=== PATIENT | female | born 1935 | race Caucasian/White ===

== ENCOUNTER → 2016-07-03 | Outpatient (CLI) | payer BC ==
[2016-07-03 16:52] LABS: BASO % 0.6 %; BASO ABS # 0.03 K/uL (0-0.2); COMPLETE YES; EOS % 0.4 %; HEMATOCRIT 39.3 % (37-47); IG% 0.2 %; LYMPH % 37.6 %; LYMPH ABS # 1.78 K/uL (1.2-3.4); MEAN CELL VOLUME 97.5 fL (80-100); MEAN CORPUSCULAR HEMOGLOBIN 33.7 pg (25-34); MEAN CORPUSCULAR HGB CONC 34.6 g/dl (32-36); MEAN PLATELET VOLUME 10.6 fL (7.4-10.4); MONO % 9.7 %; NEUT % 51.5 %; PLATELET COUNT 246 K/uL (130-400); RED BLOOD COUNT 4.03 M/uL (4.2-5.4); WHITE BLOOD COUNT 4.73 K/uL (4.8-10.8)
[2016-07-03 17:03] LABS: ALT/SGPT 18 U/L (12-78); BLOOD UREA NITROGEN 23 mg/dl (7-18); BUN/CREATININE RATIO 19.4 (10-20); CALCIUM 9.1 mg/dl (8.5-10.1); CARBON DIOXIDE 29 mmol/L (21-32); CHLORIDE 100 mmol/L (98-107); CHOLESTEROL 162 mg/dl (0-200); GLUCOSE 72 mg/dl (70-99); POTASSIUM 3.7 mmol/L (3.5-5.1); SODIUM 138 mmol/L (136-145); TRIGLYCERIDES 187 mg/dl (0-150); VERY LOW DENSITY LIPOPROT CALC 37 mg/dl
[2016-07-03 17:13] LABS: ALB/GLOB RATIO 1.1 (0.9-2); ALKALINE PHOSPHATASE 79 U/L (45-117); AST/SGOT 19 U/L (15-37); CHOLESTEROL/HDL RATIO 1.6; HDL CHOLESTEROL 100 mg/dl; LDL CHOLESTEROL CALCULATED 25 mg/dl; THYROID STIMULATING HORMONE 0.735 uIu/ml (0.300-4.500)
--- NOTE | 2016-07-07 12:10 | CODING QUERY MEDICAL NECESSITY ---
SUPPORTING DIAGNOSIS NEEDED A supporting diagnosis is required for the test/procedure performed on this patient in order for us to be reimbursed by the patient's insurance. Please provide a supporting diagnosis for the following test/procedure listed below next to the test name along with your signature. *If there is no additional diagnosis for this patient that would support the following test/procedure please document that below next to the test/procedure. Test(s)/Procedure(s) that require a supporting diagnosis: DOS 07/03 * Vitamin D DIAGNOSIS: Provider Signature: Date: Thank you Debby Mcintosh Health Information Management Once completed, please kindly fax back to [phone] For questions please call [phone]
== END | disposition home or self-care (01) ==
LOC: C.LABBC 13:35
PROVIDERS: ATTEND Internal Medicine Geriatric Medicine
DX: I10 Essential (primary) hypertension (principal); E04.2 Nontoxic multinodular goiter; E78.5 Hyperlipidemia, unspecified; E87.6 Hypokalemia; F41.8 Other specified anxiety disorders; M85.80 Other specified disorders of bone density and structure, unspecified site; E55.9 Vitamin D deficiency, unspecified

== ENCOUNTER 2021-02-26 12:27 | Inpatient (IN) ==
--- NOTE | 2021-02-26 12:52 | Emergency Department Note ---
Impression & Plan Parotid mass, Anemia, Cervical mass, Cystitis ED Provider Note NAME: SCOOTER MONIQUE AGE: 85 SEX: F : 1935 ARRIVES VIA: Ambulance INFORMANT: Patient, ED PROVIDER(S): Murali Basilio MD Chief Complaint: Vaginal bleeding HPI: Patient does present due to concern for vaginal bleeding. The patient states that she had some bleeding earlier in the week and thought that this is related to a cystitis or bladder infection. The patient does reside at [facility] but had the passage of 2 large size clots from the vagina today. The patient does not take blood thinning medications and no prior history of hysterectomy, ovarian, cervical, or vaginal cancer. Patient denies any fevers or chills. Patient is not vaccinated for COVID-19. Patient denies any chest pain shortness of breath nausea vomiting or dizziness. Patient denies any recent falls or trauma. Patient states that she had told her daughter who was could call the urologist as they initially thought this is bleeding due to UTI. ROS: See HPI for pertinent positives and negatives. A total of 10 systems were reviewed and otherwise negative. Past medical history: See below Surgical history: See below Social history: See below Physical Exam: GENERAL: NAD, wearing a mask, non-toxic. EYE EXAM: Normal conjunctiva. PERRL, no anisocoria and EOM's grossly intact w/o pain. NECK: Supple, no nuchal rigidity, no adenopathy, non-tender. No signs of meningismus. LUNGS: Clear to auscultation. Normal chest wall mechanics. HEART: NSR, no MRG. ABDOMEN: Abdomen soft, non-tender, normo-active bowel sounds, no masses, no rebound or guarding. BACK: No CVA TTP. SKIN: No rashes and no bruising. UPPER EXTREMITIES: Upper extremities are grossly normal. LOWER EXTREMITIES: Grossly normal, no edema. NEURO EXAM: A&O x3, cranial nerves II-XII grossly intact, normal speech, moves all 4 extremities on command w/o issue. Differential diagnoses: Etiologies such as threatened AB, miscarriage, ectopic , dysfunction uterine bleeding, bleeding dyscrasia, trauma, infection, as well as others were entertained. Course: Patient was seen and evaluated the bedside. Full history physical exam was performed. Imaging Studies: See Below Cardiac monitoring: An order was placed for continuous cardiac monitoring. The monitor shows a rate of 95 with sinus rhythm. MDM: Patient's initial pelvic ultrasound showed concern for possible bladder clot and CT of the abdomen pelvis was obtained. The patient had mild white count 15 but may have had a mild UTI. Urinalysis does appear to be consistent with that and Rocephin was ordered. Hemoglobin is 10.7 which is a change but most recent hemoglobin viewable in our system is from 2018. Patient's platelet count is unremarkable. Patient does have mild kidney dysfunction compared to prior with a creatinine of 2.2. There is some hydro of the left side on the CAT scan but the patient does not have any hydro on the right side. Patient did receive IV fluids. I did speak to the on-call hospitalist Dr. Yoo. 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 I did speak the on-call [employer] physician Dr. Truong who stated that the patient would likely not be a surgical candidate but may benefit from chemo and/or radiation therapy. I did convey this to hospitalist. The patient was consented for blood blood was ordered. Critical Care: I have personally spent 47 minutes of critical care time in direct management of this patient. This includes bedside care, interpretation of diagnostic studies, and testing, discussion with consultants, patient, and family members, and other require inpatient management activities. This 47 minutes is in excess of all separately billable procedures. Past Med/Surg History Medical History Anxiety Depression Goiter, nontoxic, multinodular Hx of closed fracture left humerus Hyperlipidemia Hypertension Osteoarthritis Parotid mass Has been present for years and does not seem to be enlarging per PCP note. No imaging available. Pulmonary nodule Chronic, stable left lower lobe nodule. Follows with Dr. Marinao. Vitamin D deficiency Surgical History History of cataract surgery Bilateral History of tonsillectomy Family History Other Benign essential HTN Social History Smoking Status: Never smoker Hx Alcohol Use: Yes Alcohol type: wine Hx Substance Use: No Preferred Language: Uzbek Communication Ability: Effective Microsoft Net Developer Required: No Beliefs That Will Affect Care: None Current Living Situation: Alone Current Living Situation Comment: lives in assisted living currently Feels Safe at Home: Yes Assistive Devices: Walker Allergies Allergies Allergy/AdvReac Type Severity Reaction Status Date / Time aloe vera Allergy Intermediate Rash Verified 02/26/21 14:30 benzethonium chloride Allergy Intermediate Rash Verified 02/26/21 14:30 [From Lanacane with Aloe] benzocaine Allergy Intermediate Rash Verified 02/26/21 14:30 [From Lanacane with Aloe] meloxicam Allergy Unknown ON JUNIPER Verified 02/26/21 14:30 MED LIST Home Meds Home Medications Medication Instructions Recorded Confirmed buspirone 5 mg tablet 5 mg PO TID 03/04/18 02/26/21 cholecalciferol (vitamin D3) 50 2,000 unit PO QAM 03/04/18 02/26/21 mcg (2,000 unit) tablet (Vitamin D3) diltiazem HCl 240 mg 240 mg PO QAM 03/04/18 02/26/21 capsule,extended release 24 hr (Cardizem CD) escitalopram oxalate 20 mg tablet 20 mg PO QAM 03/11/18 02/26/21 acetaminophen 500 mg tablet 500 mg PO HS 12/06/20 02/26/21 (Tylenol Extra Strength) Results & Data (ED) Vital Signs Vital Signs - 24 hr 02/26/21 12:20 02/26/21 14:39 02/26/21 15:16 Temperature 36.5 C Temperature Source Oral Pulse Rate 96 H Pulse Rate [Left Finger] 86 73 Respiratory Rate 20 16 18 Respiratory Effort / Characteristics Non-Labored Non-Labored Non-Labored Respiratory Depth Blood Pressure 129/72 Blood Pressure [Left Arm] 127/69 148/67 H Blood Pressure Mean 91 Blood Pressure Mean [Left Arm] 88 94 Pulse Oximetry 97 98 98 Oxygen Delivery Method Room Air Sepsis Recent Fever Within 48 Hours No Sepsis New/Unexplained Change in Mental Status No Sepsis Action Taken by Nursing No Action Required 02/26/21 16:00 Temperature Temperature Source Pulse Rate Pulse Rate [Left Finger] 77 Respiratory Rate 20 Respiratory Effort / Characteristics Non-Labored Spontaneous Respiratory Depth Normal Blood Pressure Blood Pressure [Left Arm] 149/60 H Blood Pressure Mean Blood Pressure Mean [Left Arm] 89 Pulse Oximetry 98 Oxygen Delivery Method Room Air Sepsis Recent Fever Within 48 Hours Sepsis New/Unexplained Change in Mental Status Sepsis Action Taken by [facility] Medications Current Medication List: was personally reviewed by me Laboratory Data Attestation: I reviewed the patient's lab results. Result diagrams: 02/26/21 13:08 02/26/21 13:08 Lab Results 02/26/21 02/26/21 02/26/21 Range/Units 13:08 13:08 13:08 WBC 15.34 H (4.8-10.8) K/uL RBC 3.50 L (4.2-5.4) M/uL Hgb 7.7 L (12.0-16.0) g/dL Hct 25.9 L (37-47) % MCV 74.0 L (80-100) fL MCH 22.0 L (25-34) pg MCHC 29.7 L (32-36) g/dL RDW Std Deviation 50.2 H (36.4-46.3) fL RDW Coeff of Jasmina 18.7 H (11.5-14.5) % Plt Count 474 H (130-400) K/uL MPV 8.6 (7.4-10.4) fL Immature Gran % (Auto) 0.4 % Neut % (Auto) 80.6 % Lymph % (Auto) 10.6 % [place] % (Auto) 7.4 % Eos % (Auto) 0.6 % Baso % (Auto) 0.4 % Neut # (Auto) 12.37 H (1.4-6.5) K/uL Lymph # (Auto) 1.62 (1.2-3.4) K/uL [place] # (Auto) 1.14 H (0.11-0.59) K/uL Eos # (Auto) 0.09 (0-0.5) K/uL Baso # (Auto) 0.06 (0-0.2) K/uL Immature Gran # (Auto) 0.06 H (0.00-0.02) K/uL Polychromasia 1+ Microcytosis Present PT 10.4 (9.0-12.0) Seconds INR 1.0 (0.9-1.1) APTT 23.9 (21.0-31.0) Seconds PTT Ratio 0.9 Sodium (136-145) mmol/L Potassium (3.5-5.1) mmol/L Chloride (98-107) mmol/L Carbon Dioxide (21-32) mmol/L Anion Gap (3-11) BUN (7-18) mg/dl Creatinine (0.6-1.2) mg/dl Est Cr Clr Drug Dosing ml/min Est GFR ( Amer) ml/min Est GFR (Non-Af Amer) ml/min BUN/Creatinine Ratio (10-20) Glucose (70-99) mg/dl Calcium (8.5-10.1) mg/dl Total Bilirubin (0.2-1) mg/dl AST (15-37) U/L ALT (12-78) U/L Alkaline Phosphatase (45-117) U/L Total Protein (6.4-8.2) gm/dl Albumin (3.4-5.0) gm/dl Globulin (2.5-4.0) gm/dl Albumin/Globulin Ratio (0.9-2) HCG, Quant mIU/ml Urine Color Urine Appearance (Clear) Urine pH (4.5-7.5) Ur Specific [place] (1.000-1.030) Urine Protein (Negative) Urine Glucose (UA) (Negative) Urine Ketones (Negative) Urine Blood (Negative) Urine Nitrite (Negative) Urine Bilirubin (Negative) Urine Urobilinogen (Negative) Ur Leukocyte Esterase (Negative) Urine RBC (0-4) /hpf Urine WBC (0-5) /hpf Ur Epithelial Cells (0-5) /lpf Urine Bacteria (Negative) COVID-19 Eval Order SARS-CoV-2 (PCR) (Negative) Blood Type B Positive Antibody Screen NEGATIVE Crossmatch See Detail 02/26/21 02/26/21 02/26/21 Range/Units 13:08 13:08 14:23 WBC (4.8-10.8) K/uL RBC (4.2-5.4) M/uL Hgb (12.0-16.0) g/dL Hct (37-47) % MCV (80-100) fL MCH (25-34) pg MCHC (32-36) g/dL RDW Std Deviation (36.4-46.3) fL RDW Coeff of Jasmina (11.5-14.5) % Plt Count (130-400) K/uL MPV (7.4-10.4) fL Immature Gran % (Auto) % Neut % (Auto) % Lymph % (Auto) % [place] % (Auto) % Eos % (Auto) % Baso % (Auto) % Neut # (Auto) (1.4-6.5) K/uL Lymph # (Auto) (1.2-3.4) K/uL [place] # (Auto) (0.11-0.59) K/uL Eos # (Auto) (0-0.5) K/uL Baso # (Auto) (0-0.2) K/uL Immature Gran # (Auto) (0.00-0.02) K/uL Polychromasia Microcytosis PT (9.0-12.0) Seconds INR (0.9-1.1) APTT (21.0-31.0) Seconds PTT Ratio Sodium 140 (136-145) mmol/L Potassium 4.1 (3.5-5.1) mmol/L Chloride 111 H (98-107) mmol/L Carbon Dioxide 21 (21-32) mmol/L Anion Gap 8.0 (3-11) BUN 30 H (7-18) mg/dl Creatinine 2.29 H (0.6-1.2) mg/dl Est Cr Clr Drug Dosing 19.0 ml/min Est GFR ( Amer) 21.5 ml/min Est GFR (Non-Af Amer) 18.6 ml/min BUN/Creatinine Ratio 13.2 (10-20) Glucose 158 H (70-99) mg/dl Calcium 8.8 (8.5-10.1) mg/dl Total Bilirubin 0.3 (0.2-1) mg/dl AST 7 L (15-37) U/L ALT 8 L (12-78) U/L Alkaline Phosphatase 77 (45-117) U/L Total Protein 6.3 L (6.4-8.2) gm/dl Albumin 2.4 L (3.4-5.0) gm/dl Globulin 3.9 (2.5-4.0) gm/dl Albumin/Globulin Ratio 0.6 L (0.9-2) HCG, Quant 14 mIU/ml Urine Color Red Urine Appearance Turbid A (Clear) Urine pH 8.5 H (4.5-7.5) Ur Specific [place] 1.025 (1.000-1.030) Urine Protein 3+ H (Negative) Urine Glucose (UA) Trace H (Negative) Urine Ketones Negative (Negative) Urine Blood 3+ H (Negative) Urine Nitrite Positive A (Negative) Urine Bilirubin 1+ H (Negative) Urine Urobilinogen Negative (Negative) Ur Leukocyte Esterase Negative (Negative) Urine RBC >30 H (0-4) /hpf Urine WBC 10-30 H (0-5) /hpf Ur Epithelial Cells 0-5 (0-5) /lpf Urine Bacteria 2+ H (Negative) COVID-19 Eval Order SARS-CoV-2 (PCR) (Negative) Blood Type Antibody Screen Crossmatch 02/26/21 02/26/21 Range/Units 15:45 15:45 WBC (4.8-10.8) K/uL RBC (4.2-5.4) M/uL Hgb (12.0-16.0) g/dL Hct (37-47) % MCV (80-100) fL MCH (25-34) pg MCHC (32-36) g/dL RDW Std Deviation (36.4-46.3) fL RDW Coeff of Jasmina (11.5-14.5) % Plt Count (130-400) K/uL MPV (7.4-10.4) fL Immature Gran % (Auto) % Neut % (Auto) % Lymph % (Auto) % [place] % (Auto) % Eos % (Auto) % Baso % (Auto) % Neut # (Auto) (1.4-6.5) K/uL Lymph # (Auto) (1.2-3.4) K/uL [place] # (Auto) (0.11-0.59) K/uL Eos # (Auto) (0-0.5) K/uL Baso # (Auto) (0-0.2) K/uL Immature Gran # (Auto) (0.00-0.02) K/uL Polychromasia Microcytosis PT (9.0-12.0) Seconds INR (0.9-1.1) APTT (21.0-31.0) Seconds PTT Ratio Sodium (136-145) mmol/L Potassium (3.5-5.1) mmol/L Chloride (98-107) mmol/L Carbon Dioxide (21-32) mmol/L Anion Gap (3-11) BUN (7-18) mg/dl Creatinine (0.6-1.2) mg/dl Est Cr Clr Drug Dosing ml/min Est GFR ( Amer) ml/min Est GFR (Non-Af Amer) ml/min BUN/Creatinine Ratio (10-20) Glucose (70-99) mg/dl Calcium (8.5-10.1) mg/dl Total Bilirubin (0.2-1) mg/dl AST (15-37) U/L ALT (12-78) U/L Alkaline Phosphatase (45-117) U/L Total Protein (6.4-8.2) gm/dl Albumin (3.4-5.0) gm/dl Globulin (2.5-4.0) gm/dl Albumin/Globulin Ratio (0.9-2) HCG, Quant mIU/ml Urine Color Urine Appearance (Clear) Urine pH (4.5-7.5) Ur Specific [place] (1.000-1.030) Urine Protein (Negative) Urine Glucose (UA) (Negative) Urine Ketones (Negative) Urine Blood (Negative) Urine Nitrite (Negative) Urine Bilirubin (Negative) Urine Urobilinogen (Negative) Ur Leukocyte Esterase (Negative) Urine RBC (0-4) /hpf Urine WBC (0-5) /hpf Ur Epithelial Cells (0-5) /lpf Urine Bacteria (Negative) COVID-19 Eval Order Covid19 at [facility] SARS-CoV-2 (PCR) NEGATIVE (Negative) Blood Type Antibody Screen Crossmatch Administered Medications Discontinued Medications Sodium Chloride (Nss 1000ml) 1,000 mls @ 999 mls/hr IV .Q1H1M KRISTYN Stop: 02/26/21 14:00 Last Infusion: 02/26/21 14:30 Dose: 0 mls/hr Documented by: [id number] Admin: 02/26/21 13:27 Dose: 999 mls/hr Documented by: [id number] Sodium Chloride (Nss 1000ml) 500 mls @ 999 mls/hr IV .Q31M ONE Stop: 02/26/21 14:39 Last Infusion: 02/26/21 15:47 Dose: 0 mls/hr Documented by: [id number] Admin: 02/26/21 14:58 Dose: 999 mls/hr Documented by: [id number] Ceftriaxone Sodium (Rocephin) 2,000 mg in 70 mls @ 140 mls/hr IV NOW STA Stop: 02/26/21 15:57 Last Infusion: 02/26/21 16:11 Dose: 0 mls/hr Documented by: [id number] Admin: 02/26/21 15:38 Dose: 140 mls/hr Documented by: [id number] Morphine Sulfate (Morphine Sulfate 4 Mg/Ml 1 Ml Carp\Vial) 2 mg IV NOW STA Stop: 02/26/21 15:29 Last Admin: 02/26/21 15:38 Dose: Not Given Documented by: [id number] Morphine Sulfate (Morphine Sulfate 2 Mg/Ml Carp) Confirm Administered Dose 2 mg .ROUTE .STK-MED ONE Stop: 02/26/21 15:33 Last Admin: 02/26/21 15:38 Dose: 2 mg Documented by: [id number] Imaging Data Radiologist's Impression: Pelvis Ultrasound 02/26/21 12:48 PELVIC ULTRASOUND CLINICAL HISTORY: Vaginal bleeding. COMPARISON STUDY: None. TECHNIQUE: Transabdominal sonography of the pelvis was performed. Patient deferred transvaginal exam. FINDINGS: The uterus measures 9.2 x 2.7 x 2.5 cm. Endometrium is not well visualized on this transabdominal exam but measures approximately 4 mm in thickness. Ovaries were not visualized. There is complex material within the bladder. There is no right hydronephrosis. There is moderate to severe left hydr onephrosis. IMPRESSION: 1. Complex material within the bladder which could reflect clot. Coexistent bladder mass cannot be excluded. Moderate to severe left hydronephrosis. CT of the abdomen and pelvis is recommended for further evaluation. 2. Suboptimal evaluation of endometrial thickness on this exam although measures approximately 4 mm which is within normal limits in a postmenopausal patient. 3. Nonvisualization of the ovaries. ACT 112: Negative or not required by law. Electronically signed by: Yuri Bryant M.D. 02/26/2021 2:11 PM Abdomen/Pelvis CT 02/26/21 14:16 CT OF THE ABDOMEN AND PELVIS WITHOUT CONTRAST CLINICAL HISTORY: hydro, bladder clot COMPARISON STUDY: Pelvic ultrasound February 26, 2021 at 1:35 PM. TECHNIQUE: Axial images of the abdomen and pelvis were obtained without IV contrast. Images were reviewed in the axial, sagittal, and coronal planes. Automated exposure control was utilized for the study. A dose lowering technique was utilized adhering to the principles of ALARA. FINDINGS: Visualized portions of the lower chest demonstrate a moderate sized hiatal hernia. No pneumatosis, free air or portal venous gas is present. Evaluation of the abdomen and pelvis is suboptimal given the lack of contrast. A 1.1 cm segment 6 hepatic lesion favors a cyst. A 2.4 cm inferior right hepatic lobe lesion favors a cyst as well. There is no biliary or pancreatic ductal dilatation. The adrenal glands, pancreas and right kidney are normal. There is no biliary or pancreatic ductal dilatation. A 6 mm left renal lesion may reflect a hyperdense cyst. There is moderate left hydroureteronephrosis. The left ureter is dilated to the level of the left cervix with transition in caliber on image 298 of 396. There is heterogeneous enlargement of the cervix which contains hyperdense material which may reflect tumor or blood. In addition, there is loss of fat plane between the cervix and bladder with extensive material within the bladder. There is trace gas within the bladder. Infiltration adjacent to the bladder is pres ent. A few prominent asymmetrically enlarged left iliac chain lymph nodes are present. Index left iliac node on image 228 of 396 measures 1.1 x 0.8 cm. There is no evidence for a bowel obstruction. Colonic diverticulosis is noted without evidence for acute diverticulitis. No suspicious lesions are identified within visualized skeletal structures. IMPRESSION: 1. Mass-like enlargement of the cervix with loss of fat plane between the cervix and bladder with associated material within the bladder. 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 Hyperdense material within the bladder and cervix may reflect tumor and hemorrhage. Nonemergent Gynecologic consultation is recommended. 2. Infiltration adjacent to the bladder raises the possibility of a superimposed infectious process and could be correlated with urinalysis. 3. Prominent left iliac chain lymph nodes. Although these could be reactive, andrzej spread of disease could appear similar. 4. No bowel obstruction. ACT 112: Positive. There are findings on this exam that require communication between the performing entity and the patient following Patient Test Result Information Act ([place] Act 112) guidelines. Electronically signed by: Yuri Bryant M.D. 02/26/2021 3:10 PM Discharge Plan Visit Data Chief Complaint: Vaginal Bleeding Stated Complaint: vaginal bleeding ED Provider: Murali Basilio Discharge Problem: Parotid mass, Anemia, Cervical mass, Cystitis Patient Disposition: Admitted As Inpatient Discharge Instructions Interventions: ED Discharge Assessment Last Done: 02/26/21 18:38
[2021-02-26] MEDS ORDERED: SODIUM CHLORIDE 0.9% 1000ML 1,000 ML IV SCH (13:00)
[2021-02-26 13:20] LABS: Basophils # (auto) 0.06 K/uL (0-0.2); Basophils % (auto) 0.4 %; Eosinophils # (auto) 0.09 K/uL (0-0.5); Eosinophils % (auto) 0.6 %; Hematocrit (blood only) 25.9 % (37-47); Hemoglobin 7.7 g/dL (12.0-16.0); Immature Granulocytes # (auto) 0.06 K/uL (0.00-0.02); Immature Granulocytes % (auto) 0.4 %; Lymphocytes # (auto) 1.62 K/uL (1.2-3.4); Lymphocytes % (auto) 10.6 %; Mean Corpuscular Hgb Conc 29.7 g/dL (32-36); Mean Platelet Volume 8.6 fL (7.4-10.4); Monocytes # (auto) 1.14 K/uL (0.11-0.59); Monocytes % (auto) 7.4 %; Neutrophils # (auto) 12.37 K/uL (1.4-6.5); Neutrophils % (auto) 80.6 %; Platelet Count 474 K/uL (130-400); RDW Coefficient of Variation 18.7 % (11.5-14.5); RDW Standard Deviation 50.2 fL (36.4-46.3); White Blood Count 15.34 K/uL (4.8-10.8)
[2021-02-26 13:39] LABS: Albumin Level 2.4 gm/dl (3.4-5.0); BUN Creatinine Ratio 13.2 (10-20); Calcium 8.8 mg/dl (8.5-10.1); Est GFR (African American) 21.5 ml/min; Est GFR (Non-African American) 18.6 ml/min; Potassium 4.1 mmol/L (3.5-5.1)
[2021-02-26 13:40] LABS: Partial Thromboplastin Ratio 0.9; Partial Thromboplastin Time 23.9 Seconds (21.0-31.0); Prothrombin Time 10.4 Seconds (9.0-12.0)
[2021-02-26 13:42] LABS: Albumin Globulin Ratio 0.6 (0.9-2); Bilirubin,Total 0.3 mg/dl (0.2-1); Globulin 3.9 gm/dl (2.5-4.0); Total Protein 6.3 gm/dl (6.4-8.2)
[2021-02-26 13:58] LABS: Microcytosis Present; Polychromasia 1+
[2021-02-26] MEDS ORDERED: SODIUM CHLORIDE 0.9% 1000ML 500 ML IV ONE (14:09)
--- NOTE | 2021-02-26 14:12 | Ultrasound Report ---
PELVIC ULTRASOUND CLINICAL HISTORY: Vaginal bleeding. COMPARISON STUDY: None. TECHNIQUE: Transabdominal sonography of the pelvis was performed. Patient deferred transvaginal exam . FINDINGS: The uterus measures 9.2 x 2.7 x 2.5 cm. Endometrium is not well visualized on this transabd ominal exam but measures approximately 4 mm in thickness. Ovaries were not visualized. There is compl ex material within the bladder. There is no right hydronephrosis. There is moderate to severe left hy dronephrosis. IMPRESSION: 1. Complex material within the bladder which could reflect clot. Coexistent bladder mass cannot be ex cluded. Moderate to severe left hydronephrosis. CT of the abdomen and pelvis is recommended for furth er evaluation. 2. Suboptimal evaluation of endometrial thickness on this exam although measures approximately 4 mm w hich is within normal limits in a postmenopausal patient. 3. Nonvisualization of the ovaries. ACT 112: Negative or not required by law. Electronically signed by: Yuri Bryant M.D. 02/26/2021 2:11 PM
[2021-02-26 14:47] LABS: Appearance Urine Turbid (Clear); Bilirubin Urine 1+ (Negative); Blood Urine 3+ (Negative); Color Urine Red; Glucose Urine UA Trace (Negative); Ketones Urine Negative (Negative); Leukocyte Esterase Urine Negative (Negative); Nitrite Urine Positive (Negative); Protein Urine 3+ (Negative); Specific Gravity Urine 1.025 (1.000-1.030); Urobilinogen Urine Negative (Negative); pH Urine 8.5 (4.5-7.5)
[2021-02-26 14:53] LABS: Epithelial Cell Urine 0-5 /lpf (0-5); RBC Urine >30 /hpf (0-4)
[2021-02-26 14:55] LABS: Bacteria Urine 2+ (Negative)
--- NOTE | 2021-02-26 15:11 | CT Scan Report ---
CT OF THE ABDOMEN AND PELVIS WITHOUT CONTRAST CLINICAL HISTORY: hydro, bladder clot COMPARISON STUDY: Pelvic ultrasound February 26, 2021 at 1:35 PM. TECHNIQUE: Axial images of the abdomen and pelvis were obtained without IV contrast. Images were revi ewed in the axial, sagittal, and coronal planes. Automated exposure control was utilized for the loyda dy. A dose lowering technique was utilized adhering to the principles of ALARA. FINDINGS: Visualized portions of the lower chest demonstrate a moderate sized hiatal hernia. No pneum atosis, free air or portal venous gas is present. Evaluation of the abdomen and pelvis is suboptimal given the lack of contrast. A 1.1 cm segment 6 hepatic lesion favors a cyst. A 2.4 cm inferior right hepatic lobe lesion favors a cyst as well. There is no biliary or pancreatic ductal dilatation. The a drenal glands, pancreas and right kidney are normal. There is no biliary or pancreatic ductal dilatat ion. A 6 mm left renal lesion may reflect a hyperdense cyst. There is moderate left hydroureteronephrosis. The left ureter is dilated to the level of the left cer vix with transition in caliber on image 298 of 396. There is heterogeneous enlargement of the cervix which contains hyperdense material which may reflect tumor or blood. In addition, there is loss of fa t plane between the cervix and bladder with extensive material within the bladder. There is trace gas within the bladder. Infiltration adjacent to the bladder is present. A few prominent asymmetrically enlarged left iliac chain lymph nodes are present. Index left iliac node on image 228 of 396 measures 1.1 x 0.8 cm. There is no evidence for a bowel obstruction. Colonic diverticulosis is noted without evidence for acute diverticulitis. No suspicious lesions are identified within visualized skeletal st ructures. IMPRESSION: 1. Mass-like enlargement of the cervix with loss of fat plane between the cervix and bladder with ass ociated material within the bladder. 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 Hyperdense material within the bladder and cervix may reflect tumor and hemor rhage. Nonemergent Gynecologic consultation is recommended. 2. Infiltration adjacent to the bladder raises the possibility of a superimposed infectious process a nd could be correlated with urinalysis. 3. Prominent left iliac chain lymph nodes. Although these could be reactive, andrzej spread of disease could appear similar. 4. No bowel obstruction. ACT 112: Positive. There are findings on this exam that require communication between the performing entity and the patient following Patient Test Result Information Act ([place] Act 112) guidelines. Electronically signed by: Yuri Bryant M.D. 02/26/2021 3:10 PM
[2021-02-26] MEDS ORDERED: MoRPHine SULFATE 4 MG/ML 1 ML CARP\\VIAL IV STA (15:28)
[2021-02-26] MEDS ORDERED: cefTRIAXone SODIUM 2,000 MG/70 ML BAG IV STA (15:28)
[2021-02-26] MEDS ORDERED: MoRPHine SULFATE 2 MG/ML CARP ONE (15:32)
[2021-02-26] MEDS ORDERED: SODIUM CHLORIDE 0.9% 250 ML IV PRN ×2 (16:26→19:21)
[2021-02-26] MEDS ORDERED: ACETAMINOPHEN 325 MG TAB PO PRN (16:57)
--- NOTE | 2021-02-26 17:07 | History & Physical Report ---
Date of Service February 26, 2021 Assessment & Plan (1) Cervical mass: Plan: Mass-like enlargement of the cervix with loss of fat plane between the cervix and bladder with associated material within the bladder. 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 - Gyne consulted- appreciate assistance - Family at bedside and once diagnosis established would likely take a palliative and comfort approach (2) Bladder injury: Plan: Hyperdense material within the bladder and cervix may reflect tumor and hemorrhage. - Urology consulted- appreciate assistance - no urinary outflow tract obstruction at this time - suspect bladder invasion from cervical mass (3) Hematuria: Plan: As above- - No acute hemmorhage with stable vital signs and HGB - will trend CBC and transfuse to keep >8 - If urinary obstruction occurs likely will need 3 way with irrigation - defer to urology (4) Hydroureteronephrosis: Plan: Urology consulted - appreciate assistance - as above - high probability of oncological process (5) Anemia: Plan: Acute on chronic- likely with component of iron deficiency - Current bleeding and HGB <8 will transfuse to keep >8 - If hemodynamics change- support with PRBC - INR normal - Platlet count normal - CBC at midnight (6) UTI (urinary tract infection): Plan: Continue Rocephin- await culture - Recently treated with Diflucan as outpatient secondary to yeast in urine as well - Monitor inflammatory response and culture data (7) ELADIO (acute kidney injury): Plan: Pre-renal as she was decreasing oral intake secondary to pain with urination - PRBC for volume and anemia - support with IVF as needed (8) Chronic kidney disease, stage III (moderate): Plan: As above (9) Hypertension: Plan: Continue Cardizem as long as hemodynamics remain normal (10) REINA (generalized anxiety disorder): Plan: Continue buspirone (11) Parotid mass: Plan: Stable History of Present Illness Chief Complaint: bleeding Primary Care Provider: Archana Sun at [facility] 85 YOF with past medical history of: Fall, arthroplasty of, chronic anemia, HTN, HFpEF, OA, DJD of right knee with replacement, REINA, chronic parotid mass. Patient comes in today with her daughter for concerns of increase in bleeding and clot passage noted in her depends. The patient reports that she has had some blood in urine for a while but only just on the toilet paper or in the bowel. In october she had one episode of large blood with clot passage in her depends, that went away on its own. Over the past week there has been increase in clot and blood in her pads and changing her undergarments 5-6 x per day. This is associated with burning and pain that is mostly felt in the urethra. She does not notice any rectal pain or vaginal pain. She had 2 large clots in her depends this morning, was changed in the EMD x1, and upon my evaluation has another large clot with blood noted in her depends. The patient has chronic anemia but her HGB is down to 7.7 today. She had a CT scan of the abdomen and pelvis done, although without contrast secondary to her elevated INVENTORY CONTROL CLERK level. The CT scan of her abdomen and pelvis revealed- heterogeneous enlargement of the cervix which contains hyperdense material which may reflect tumor or blood as well as inflammatory process that is consistent with her elevated WBC and ur inalysis. Her abdominal ultrasound revealed Complex material within the bladder which could reflect clot. Coexistent bladder mass cannot be excluded. The patient will be admitted to converge on a diagnostic and treatment plan for the above findings which likely represent a malignant process. Will transfuse PRBC to keep HGB >8, she is hemodynamically stable, follow renal function, and pain control. Will continue Rocephin for her UTI. Patient COVID test on admission is: NEGATIVE Allergies Allergy/AdvReac Type Severity Reaction Status Date / Time aloe vera Allergy Intermediate Rash Verified 02/26/21 14:30 benzethonium chloride Allergy Intermediate Rash Verified 02/26/21 14:30 [From Lanacane with Aloe] benzocaine Allergy Intermediate Rash Verified 02/26/21 14:30 [From Lanacane with Aloe] meloxicam Allergy Unknown ON JUNIPER Verified 02/26/21 14:30 MED LIST Home Medications Medication Instructions Recorded Confirmed Type buspirone 5 mg tablet 5 mg PO TID 03/04/18 02/26/21 History cholecalciferol (vitamin D3) 50 2,000 unit PO QAM 03/04/18 02/26/21 History mcg (2,000 unit) tablet (Vitamin D3) diltiazem HCl 240 mg 240 mg PO QAM 03/04/18 02/26/21 History capsule,extended release 24 hr (Cardizem CD) escitalopram oxalate 20 mg tablet 20 mg PO QAM 03/11/18 02/26/21 History acetaminophen 500 mg tablet 500 mg PO HS 12/06/20 02/26/21 History (Tylenol Extra Strength) Past Med/Surg History Medical History Anxiety Depression Goiter, nontoxic, multinodular Hx of closed fracture left humerus Hyperlipidemia Hypertension Osteoarthritis Parotid mass Has been present for years and does not seem to be enlarging per PCP note. No imaging available. Pulmonary nodule Chronic, stable left lower lobe nodule. Follows with Dr. Mariano. Vitamin D deficiency Surgical History History of cataract surgery Bilateral History of tonsillectomy Family History Other Benign essential HTN Social History Smoking Status: Never smoker Hx Alcohol Use: Yes Alcohol type: wine Hx Substance Use: No Preferred Language: Australian Communication Ability: Effective Coverage Analyst Required: No Beliefs That Will Affect Care: None Current Living Situation: Alone and Other Current Living Situation Comment: [facility] Other Information That Helps Us Care for You: No Feels Safe at Home: Yes Safety Concerns: Feels Safe At This Time Assistive Devices: Glasses and Walker Review of Systems Review of Systems: REVIEW OF SYSTEMS: Constitutional: No fever, sweats or chills Eyes: No diplopia, no worsening or blurred vision ENT: (+) parotid mass, normal hearing, no trouble swallowing Respiratory: No cough, sputum, dyspnea at rest or on exertion Cardiovascular: No chest pain, tightness or palpitations Abdomen: No pain, nausea, vomiting, diarrhea or constipation : (+) burning and pain with urination, blood with clots, Musculoskeletal: Hip and knee joint pain, NO calf pain, swelling Neurologic: No weakness, numbness/tingling, or balance problems Psychiatric: (+) anxiety or depression Skin: No rash or itch Physical Exam Physical Exam: PHYSICAL EXAM: General: awake, alert, no apparent distress Head: Normocephalic, atraumatic ENT: PERRL, EOMI, no pharyngeal exudate, mucous membranes moist Neuro: AAO x 3, speech clear and appropriate, strength intact bilaterally 5/5, sensation intact and equal all extremities and dermatomes, no pronator drift Chest: equal rise and fall of the chest, no accessory muscle use, no heaves or thrills, Clear to auscultation, on room air, Cardiac: Regular rate and rhythm, telemetry reviewed-NSR, skin warm dry, cap refill <3 seconds, peripheral pulses +2 no JVD, no murmur, no edema GI: NABS x 4 quadrants, soft, nontender to palpation, no rebound, guarding or tenderness : clots with blood and urine pain to palpation in the bladder and groin Extremities: Normal inspection, no peripheral edema or erythema, calfs nontender to palpation Psych: Normal mood and affect- likely some mild baseline dementia Skin: no rash or erythema Results & Data Results & Data ([facility]) Vital Signs (Past 12 Hours) Vital Signs Temp Pulse Pulse Resp BP BP Pulse Ox 02/26/21 16:00 77 20 149/60 H 98 02/26/21 15:16 73 18 148/67 H 98 02/26/21 14:39 86 16 127/69 98 02/26/21 12:20 36.5 C 96 H 20 129/72 97 Laboratory Results Abnormal lab results 02/26/21 02/26/21 02/26/21 Range/Units 13:08 13:08 13:08 WBC 15.34 H (4.8-10.8) K/uL RBC 3.50 L (4.2-5.4) M/uL Hgb 7.7 L (12.0-16.0) g/dL Hct 25.9 L (37-47) % MCV 74.0 L (80-100) fL MCH 22.0 L (25-34) pg MCHC 29.7 L (32-36) g/dL RDW Std Deviation 50.2 H (36.4-46.3) fL RDW Coeff of Jasmina 18.7 H (11.5-14.5) % Plt Count 474 H (130-400) K/uL Neut # (Auto) 12.37 H (1.4-6.5) K/uL Robeson # (Auto) 1.14 H (0.11-0.59) K/uL Immature Gran # (Auto) 0.06 H (0.00-0.02) K/uL Chloride 111 H (98-107) mmol/L BUN 30 H (7-18) mg/dl Creatinine 2.29 H (0.6-1.2) mg/dl Glucose 158 H (70-99) mg/dl AST 7 L (15-37) U/L ALT 8 L (12-78) U/L Total Protein 6.3 L (6.4-8.2) gm/dl Albumin 2.4 L (3.4-5.0) gm/dl Albumin/Globulin Ratio 0.6 L (0.9-2) Urine Appearance (Clear) Urine pH (4.5-7.5) Urine Protein (Negative) Urine Glucose (UA) (Negative) Urine Blood (Negative) Urine Nitrite (Negative) Urine Bilirubin (Negative) Urine RBC (0-4) /hpf Urine WBC (0-5) /hpf Urine Bacteria (Negative) Crossmatch See Detail 02/26/21 Range/Units 14:23 WBC (4.8-10.8) K/uL RBC (4.2-5.4) M/uL Hgb (12.0-16.0) g/dL Hct (37-47) % MCV (80-100) fL MCH (25-34) pg MCHC (32-36) g/dL RDW Std Deviation (36.4-46.3) fL RDW Coeff of Jasimna (11.5-14.5) % Plt Count (130-400) K/uL Neut # (Auto) (1.4-6.5) K/uL Robeson # (Auto) (0.11-0.59) K/uL Immature Gran # (Auto) (0.00-0.02) K/uL Chloride (98-107) mmol/L BUN (7-18) mg/dl Creatinine (0.6-1.2) mg/dl Glucose (70-99) mg/dl AST (15-37) U/L ALT (12-78) U/L Total Protein (6.4-8.2) gm/dl Albumin (3.4-5.0) gm/dl Albumin/Globulin Ratio (0.9-2) Urine Appearance Turbid A (Clear) Urine pH 8.5 H (4.5-7.5) Urine Protein 3+ H (Negative) Urine Glucose (UA) Trace H (Negative) Urine Blood 3+ H (Negative) Urine Nitrite Positive A (Negative) Urine Bilirubin 1+ H (Negative) Urine RBC >30 H (0-4) /hpf Urine WBC 10-30 H (0-5) /hpf Urine Bacteria 2+ H (Negative) Crossmatch Diagnostic Findings Pelvis Ultrasound 02/26/21 12:48 PELVIC ULTRASOUND CLINICAL HISTORY: Vaginal bleeding. COMPARISON STUDY: None. TECHNIQUE: Transabdominal sonography of the pelvis was performed. Patient deferred transvaginal exam. FINDINGS: The uterus measures 9.2 x 2.7 x 2.5 cm. Endometrium is not well visualized on this transabdominal exam but measures approximately 4 mm in thickness. Ovaries were not visualized. There is complex material within the bladder. There is no right hydronephrosis. There is moderate to severe left hydronephrosis. IMPRESSION: 1. Complex material within the bladder which could reflect clot. Coexistent bladder mass cannot be excluded. Moderate to severe left hydronephrosis. CT of the abdomen and pelvis is recommended for further evaluation. 2. Suboptimal evaluation of endometrial thickness on this exam although measures approximately 4 mm which is within normal limits in a postmenopausal patient. 3. Nonvisualization of the ovaries. ACT 112: Negative or not required by law. Electronically signed by: Yuri Bryant M.D. 02/26/2021 2:11 PM Abdomen/Pelvis CT 02/26/21 14:16 CT OF THE ABDOMEN AND PELVIS WITHOUT CONTRAST CLINICAL HISTORY: hydro, bladder clot COMPARISON STUDY: Pelvic ultrasound February 26, 2021 at 1:35 PM. TECHNIQUE: Axial images of the abdomen and pelvis were obtained without IV contrast. Images were reviewed in the axial, sagittal, and coronal planes. Automated exposure control was utilized for the study. A dose lowering technique was utilized adhering to the principles of ALARA. FINDINGS: Visualized portions of the lower chest demonstrate a moderate sized hiatal hernia. No pneumatosis, free air or portal venous gas is present. Evaluation of the abdomen and pelvis is suboptimal given the lack of contrast. A 1.1 cm segment 6 hepatic lesion favors a cyst. A 2.4 cm inferior right hepatic lobe lesion favors a cyst as well. There is no biliary or pancreatic ductal dilatation. The adrenal glands, pancreas and right kidney are normal. There is no biliary or pancreatic ductal dilatation. A 6 mm left renal lesion may reflect a hyperdense cyst. There is moderate left hydroureteronephrosis. The left ureter is dilated to the level of the left cervix with transition in caliber on image 298 of 396. There is heterogeneous enlargement of the cervix which contains hyperdense material which may reflect tumor or blood. In addition, there is loss of fat plane between the cervix and bladder with extensive material within the bladder. There is trace gas within the bladder. Infiltration adjacent to the bladder is present. A few prominent asymmetrically enlarged left iliac chain lymph nodes are present. Index left iliac node on image 228 of 396 measures 1.1 x 0.8 cm. There is no evidence for a bowel obstruction. Colonic diverticulosis is noted without evidence for acute diverticulitis. No suspicious lesions are identified within visualized skeletal structures. IMPRESSION: 1. Mass-like enlargement of the cervix with loss of fat plane between the cervix and bladder with associated material within the bladder. 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 Hyperdense material within the bladder and cervix may reflect tumor and hemorrhage. Nonemergent Gynecologic consultation is recommended. 2. Infiltration adjacent to the bladder raises the possibility of a superimposed infectious process and could be correlated with urinalysis. 3. Prominent left iliac chain lymph nodes. Although these could be reactive, andrzej spread of disease could appear similar. 4. No bowel obstruction. ACT 112: Positive. There are findings on this exam that require communication between the performing entity and the patient following Patient Test Result Information Act ([place] Act 112) guidelines. Electronically signed by: Yuri Bryant M.D. 02/26/2021 3:10 PM Medications Administered Home Medications buspirone 5 mg tablet 5 mg PO TID 03/04/18 [History Confirmed 02/26/21] cholecalciferol (vitamin D3) 50 mcg (2,000 unit) tablet (Vitamin D3) 2,000 unit PO QAM 03/04/18 [History Confirmed 02/26/21] diltiazem HCl 240 mg capsule,extended release 24 hr (Cardizem CD) 240 mg PO QAM 03/04/18 [History Confirmed 02/26/21] escitalopram oxalate 20 mg tablet 20 mg PO QAM 03/11/18 [History Confirmed 02/26/21] acetaminophen 500 mg tablet (Tylenol Extra Strength) 500 mg PO HS 12/06/20 [History Confirmed 02/26/21] Active Medications Acetaminophen (Acetaminophen 325 Mg Tab) 650 mg PO Q6 PRN PRN Reason: pain or fever Stop: 03/28/21 16:56 Sodium Chloride (Nss) 250 mls @ 15 mls/hr IV .[id number] PRN PRN Reason: For Transfusion Stop: 02/27/21 02:26 Discontinued Medications Sodium Chloride (Nss 1000ml) 1,000 mls @ 999 mls/hr IV .Q1H1M KRISTYN Stop: 02/26/21 14:00 Last Infusion: 02/26/21 14:30 Dose: 0 mls/hr Documented by: [id number] Admin: 02/26/21 13:27 Dose: 999 mls/hr Documented by: [id number] Sodium Chloride (Nss 1000ml) 500 mls @ 999 mls/hr IV .Q31M ONE Stop: 02/26/21 14:39 Last Infusion: 02/26/21 15:47 Dose: 0 mls/hr Documented by: [id number] Admin: 02/26/21 14:58 Dose: 999 mls/hr Documented by: [id number] Ceftriaxone Sodium (Rocephin) 2,000 mg in 70 mls @ 140 mls/hr IV NOW STA Stop: 02/26/21 15:57 Last Infusion: 02/26/21 16:11 Dose: 0 mls/hr Documented by: [id number] Admin: 02/26/21 15:38 Dose: 140 mls/hr Documented by: [id number] Morphine Sulfate (Morphine Sulfate 4 Mg/Ml 1 Ml Carp\Vial) 2 mg IV NOW STA Stop: 02/26/21 15:29 Last Admin: 02/26/21 15:38 Dose: Not Given Documented by: [id number] Morphine Sulfate (Morphine Sulfate 2 Mg/Ml Carp) Confirm Administered Dose 2 mg .ROUTE .STK-MED ONE Stop: 02/26/21 15:33 Last Admin: 02/26/21 15:38 Dose: 2 mg Documented by: [id number] ECG Additional Comments: Not indicated- no complaints HR normal on monitor Code Status & VTE Plan Code Status CODE: FULL VTE: SCDs VTE Prophylaxis Plan VTE Prophylaxis will be ordered: Yes Supervising Physician Co-Signing Physician Notes 85 yo female is seen and examined at bedside. During face to face encounter with patient, obtained a history and physical examination. Discussed case with JOSÉ MIGUEL Cook and answered all of the patient's questions. I reviewed above note and agree with it. Patient will be admitted with vaginal bleeding.Will consult machine plug shaper and urology. will transfuse one PRBC PG Care Time/CCT Total # of Minutes Spent Total Time Spent with Patient: Total time spent is greater than 50% in coordination of care (as documented) at patient's floor/unit and/or counseling patient: Coding Level of Care Code 82498 Initial Inpt Care Lvl 3 Diagnoses Anemia D64.9 Cervical mass N88.8 Bladder injury S37.20XA Chronic kidney disease, stage III (moderate) N18.3 Hypertension I10 REINA (generalized anxiety disorder) F41.1 Parotid mass K11.9 Hydroureteronephrosis N13.30 ELADIO (acute kidney injury) N17.9 UTI (urinary tract infection) N39.0 Hematuria R31.9
[2021-02-26] MEDS ORDERED: ONDANSETRON INJ 2 MG/ML 2 ML VIAL IV PRN (19:21)
[2021-02-26] MEDS ORDERED: MoRPHine SULFATE 2 MG/ML CARP IV PRN (19:21)
[2021-02-26] MEDS ORDERED: oxyCODONE HCL IR 5 MG TAB (IMMEDIATE RELEASE) PO PRN (19:21)
[2021-02-26] MEDS: LACTATED RINGER'S 1,000 ML IV SCH (21:27)
[2021-02-26] MEDS: busPIRone 5 MG TAB PO SCH (21:27)
[2021-02-27 00:53] LABS: Hematocrit (blood only) 24.9 % (37-47); Hemoglobin 7.6 g/dL (12.0-16.0); Mean Corpuscular Hemoglobin 24.5 pg (25-34); Mean Corpuscular Hgb Conc 30.5 g/dL (32-36); Mean Corpuscular Volume 80.3 fL (80-100); Mean Platelet Volume 9.6 fL (7.4-10.4); Platelet Count 292 K/uL (130-400); RDW Coefficient of Variation 22.4 % (11.5-14.5); RDW Standard Deviation 65.6 fL (36.4-46.3); White Blood Count 16.59 K/uL (4.8-10.8)
[2021-02-27 01:00] LABS: Anisocytosis Present; Basophils # (auto) 0.04 K/uL (0-0.2); Basophils % (auto) 0.2 %; Eosinophils # (auto) 0.02 K/uL (0-0.5); Eosinophils % (auto) 0.1 %; Immature Granulocytes % (auto) 0.6 %; Lymphocytes # (auto) 2.13 K/uL (1.2-3.4); Lymphocytes % (auto) 12.8 %; Microcytosis Present; Monocytes % (auto) 10.8 %; Neutrophils % (auto) 75.5 %; Ovalocytes 1+; Polychromasia 1+
[2021-02-27] MEDS ORDERED: SODIUM CHLORIDE 0.9% 250 ML IV PRN ×3 (01:36→11:39)
[2021-02-27 05:55] LABS: Basophils # (auto) 0.02 K/uL (0-0.2); Basophils % (auto) 0.1 %; Eosinophils # (auto) 0.04 K/uL (0-0.5); Eosinophils % (auto) 0.3 %; Hematocrit (blood only) 25.1 % (37-47); Hemoglobin 7.7 g/dL (12.0-16.0); Immature Granulocytes # (auto) 0.04 K/uL (0.00-0.02); Immature Granulocytes % (auto) 0.3 %; Lymphocytes % (auto) 18.3 %; Mean Corpuscular Hemoglobin 24.1 pg (25-34); Mean Corpuscular Hgb Conc 30.7 g/dL (32-36); Mean Corpuscular Volume 78.7 fL (80-100); Mean Platelet Volume 8.6 fL (7.4-10.4); Monocytes # (auto) 1.61 K/uL (0.11-0.59); Monocytes % (auto) 11.3 %; Neutrophils # (auto) 9.91 K/uL (1.4-6.5); Neutrophils % (auto) 69.7 %; Platelet Count 349 K/uL (130-400); RDW Coefficient of Variation 20.4 % (11.5-14.5); RDW Standard Deviation 59.7 fL (36.4-46.3); Red Blood Count 3.19 M/uL (4.2-5.4); White Blood Count 14.22 K/uL (4.8-10.8)
[2021-02-27] MEDS: dilTIAZem HCL 240 MG CAPCR PO SCH (06:21)
[2021-02-27 06:26] LABS: Anisocytosis Present; BUN Creatinine Ratio 12.4 (10-20); Calcium 8.1 mg/dl (8.5-10.1); Creatinine Clr Calc Pharmacy 18.6 ml/min; Est GFR (African American) 21.5 ml/min; Est GFR (Non-African American) 18.6 ml/min; Magnesium 1.9 mg/dl (1.8-2.4); Microcytosis Present; Ovalocytes 1+; Potassium 4.1 mmol/L (3.5-5.1)
[2021-02-27 06:31] LABS: Ferritin 8.4 ng/ml (8-388)
[2021-02-27] MEDS: CHOLECALCIFEROL 1,000 UNITS 25 MCG TAB PO SCH (08:37)
[2021-02-27] MEDS: busPIRone 5 MG TAB PO SCH ×3 (08:37→20:09)
[2021-02-27] MEDS: ESCITALOPRAM OXALATE 20 MG TAB PO SCH (08:37)
--- NOTE | 2021-02-27 08:48 | OB/GYN Consultation ---
Date of Consultation February 27, 2021 Assessment & Plan (1) Cervical mass: Imaging is reviewed there is a large mass on her cervix suspected cervical cancer it is obstructing to some degree the left ureter and also pressing anteriorly into the bladder there is some debris in the bladder and whether this is blood or tumor it is uncertain. Exam was performed today with nursing at the bedside using a speculum lighted was able to barely visualize the cervix but it was abnormal and there is a mass largely on the left side of the vaginal aspect of the cervix. Palpation reveals a firm tumor of the cervix projecting again to the left side of the patient. It is nontender there is some bleeding however it is modest at most there is no fell odor. This certainly has the clinical picture of advanced cervical carcinoma. I reviewed my concerns with the patient today. At this stage in this advancement surgery would not be an option however in some cases chemotherapy and radiation can be an option to reduce the size of the tumor and improve function as well as to stop the bleeding. I did discuss that a tissue biopsy would be needed however I'm concerned to do that at this moment as she is actively bleeding and this likely will exacerbate bleeding significantly. Reviewing her imaging her left ureter appears to be at least partially obstructed if not totally there is left hydroureteronephrosis. And there is also issues with potential invasion into the bladder. Would consider reviewing with the medical team and urology a potential plan of care going forward again certainly surgery to excise the tumor the segment would not be recommended but she may well need urological intervention for the findings of her left ureter and kidney and bladder but I will await their consult. Discussed briefly with Dr. Mckeon the possibility of blood transfusion as well if a urologic procedure is necessary for the bladder and ureter injuries could consider biopsy of the cervix at the same time (2) Hydroureter: I reviewed this with the patient as well I suspect this is due to local invasion from the cervical tumor suspected cancer. Her creatinine is elevated and imaging is reviewed as well History of Present Illness Reason for Consultation: Pelvic mass Attending Physician: Adrianne Mckeon MD History of Present Illness Patient had noticed the onset of what she thought was hematuria but it was uncertain and she was also having bleeding when she was in pain this resulted in increased heaviness and clots which started over the last few days. She then presented to the emergency room. She describes no significant pain no significant flank pain she has no foul odor just this vaginal bleeding that has worsened over the last few weeks. She had imaging including CT scan and ultrasound in the emergency room she has no history of a recent ELECTROENCEPHALOGRAPH TECHNICIAN visit she does not remember having abnormal Paps. She is not remember having any ELECTROENCEPHALOGRAPH TECHNICIAN problems in the past Obstetrical history 2 prior vaginal births Allergies Allergy/AdvReac Type Severity Reaction Status Date / Time aloe vera Allergy Intermediate Rash Verified 02/26/21 14:30 benzethonium chloride Allergy Intermediate Rash Verified 02/26/21 14:30 [From Lanacane with Aloe] benzocaine Allergy Intermediate Rash Verified 02/26/21 14:30 [From Lanacane with Aloe] meloxicam Allergy Unknown ON JUNIPER Verified 02/26/21 14:30 MED LIST Home Medications Medication Instructions Recorded Confirmed Type buspirone 5 mg tablet 5 mg PO TID 03/04/18 02/26/21 History cholecalciferol (vitamin D3) 50 2,000 unit PO QAM 03/04/18 02/26/21 History mcg (2,000 unit) tablet (Vitamin D3) diltiazem HCl 240 mg 240 mg PO QAM 03/04/18 02/26/21 History capsule,extended release 24 hr (Cardizem CD) escitalopram oxalate 20 mg tablet 20 mg PO QAM 03/11/18 02/26/21 History acetaminophen 500 mg tablet 500 mg PO HS 12/06/20 02/26/21 History (Tylenol Extra Strength) Patient History Medical History Anxiety Depression Goiter, nontoxic, multinodular Hx of closed fracture left humerus Hyperlipidemia Hypertension Osteoarthritis Parotid mass Has been present for years and does not seem to be enlarging per PCP note. No imaging available. Pulmonary nodule Chronic, stable left lower lobe nodule. Follows with Dr. Mariano. Vitamin D deficiency Surgical History History of cataract surgery Bilateral History of tonsillectomy Family History Other Benign essential HTN Social History Smoking Status: Never smoker Hx Alcohol Use: Yes Alcohol type: wine Hx Substance Use: No Preferred Language: Luxembourgish Communication Ability: Effective House Designer Required: No Beliefs That Will Affect Care: None Current Living Situation: Alone and Other Current Living Situation Comment: [facility] Other Information That Helps Us Care for You: No Feels Safe at Home: Yes Safety Concerns: Feels Safe At This Time Assistive Devices: Walker Physical Exam Genitourinary: Speculum/Bimanual Exam: normal bimanual exam (Mass is fixed in the pelvis), normal appearance of the vagina and normal appearance of the cervix (Large mass protruding to the left side of the vaginal wall firm) Results & Data ([facility]) Vital Signs (Past 12 Hours) Vital Signs Temp Pulse Pulse Resp BP BP Pulse Ox 02/27/21 06:50 98.2 F 75 18 158/69 H 96 02/27/21 06:49 98.2 F 75 18 158/69 H 96 02/27/21 05:43 98.6 F 76 18 163/77 H 97 02/27/21 04:43 98.2 F 83 18 161/73 H 96 02/27/21 04:15 98.6 F 79 16 133/56 L 95 02/27/21 04:00 99.0 F 81 18 138/68 95 02/27/21 03:37 98.2 F 81 16 132/63 95 02/26/21 21:35 98.2 F 80 16 146/74 H 98 02/26/21 21:02 98.2 F 80 16 146/74 H 98 PG Care Time/CCT Total # of Minutes Spent Total Time Spent with Patient: Total time spent is greater than 50% in coordination of care (as documented) at patient's floor/unit and/or counseling patient: Coding Level of Care Code 05087 Initial Inpt Care Lvl 3 Diagnoses Cervical mass N88.8 Hydroureter N13.4
--- NOTE | 2021-02-27 09:59 | Urology Consultation ---
Date of Consultation February 27, 2021 Assessment & Plan (1) Hydroureter: (2) Hematuria: (3) Cervical mass: Unfortunate 85-year-old female who appears to have aggressive/advanced cervical carcinoma eroding or at least indenting the bladder and obstructing the left distal ureter Unfortunately she also has acute renal failure with a creatinine of 2.29, anemia with a hemoglobin of 7.7 On exam, she appears quite well and in no extreme distress I had a lengthy conversation with her today discussing her suspected pathology, this reiterated much of what was discussed with Dr. Truong From a standpoint, I am uncertain there is truly any benefit to us performing a cystoscopy Based on the appearance of the scans I think it is unlikely that I would succeed with placement of a left ureteral stent To improve her renal function the best bet may be left percutaneous nephrostomy I also think it would likely be best to biopsy this mass from the cervical/vaginal side Attempting to resect any mass from the bladder side would increase the risk of fistula substantially as well as likely lead to persistent bleeding Based on the UA, it does appear that she may have a superimposed infection and treatment with antibiotics would be appropriate to try to mitigate and limit symptoms (received ceftriaxone on arrival - this is appropriate) We will certainly continue to follow and offer our input as part of this team to develop a long-term plan for her History of Present Illness Attending Physician: Adrianne Mckeon MD History of Present Illness 85-year-old female presenting secondary to hematuria and vaginal bleeding She was seen in the emergency room in December with a presumed UTI secondary to hematuria and dysuriashe reports that she improved after a course of antibiotics Upon arrival today she had a CT which shows likely advanced cervical carcinoma eroding from the vaginal area through the posterior wall of the bladder and obstructing the left ureter Based on the appearance of the CT I strongly suspect this was the cause of her underlying symptoms previously Her creatinine is currently 2.29, approximately twice her baseline UA does appear consistent with infection which may be superimposed over the underlying malignant pathology She has experienced hematuria but reports she is emptying her bladder adequately She was seen by Dr. Truong this morninghe also suspects this is advanced cervical carcinoma and would ultimately like to pursue a biopsy, however her hemoglobin is 7.7 so she will need to be optimized prior to inducing any further bleeding Allergies Allergy/AdvReac Type Severity Reaction Status Date / Time aloe vera Allergy Intermediate Rash Verified 02/26/21 14:30 benzethonium chloride Allergy Intermediate Rash Verified 02/26/21 14:30 [From Lanacane with Aloe] benzocaine Allergy Intermediate Rash Verified 02/26/21 14:30 [From Lanacane with Aloe] meloxicam Allergy Unknown ON JUNIPER Verified 02/26/21 14:30 MED LIST Home Medications Medication Instructions Recorded Confirmed Type buspirone 5 mg tablet 5 mg PO TID 03/04/18 02/26/21 History cholecalciferol (vitamin D3) 50 2,000 unit PO QAM 03/04/18 02/26/21 History mcg (2,000 unit) tablet (Vitamin D3) diltiazem HCl 240 mg 240 mg PO QAM 03/04/18 02/26/21 History capsule,extended release 24 hr (Cardizem CD) escitalopram oxalate 20 mg tablet 20 mg PO QAM 03/11/18 02/26/21 History acetaminophen 500 mg tablet 500 mg PO HS 12/06/20 02/26/21 History (Tylenol Extra Strength) Patient History Medical History Anxiety Depression Goiter, nontoxic, multinodular Hx of closed fracture left humerus Hyperlipidemia Hypertension Osteoarthritis Parotid mass Has been present for years and does not seem to be enlarging per PCP note. No imaging available. Pulmonary nodule Chronic, stable left lower lobe nodule. Follows with Dr. Mariano. Vitamin D deficiency Surgical History History of cataract surgery Bilateral History of tonsillectomy Family History Other Benign essential HTN Social History Smoking Status: Never smoker Hx Alcohol Use: Yes Alcohol type: wine Hx Substance Use: No Preferred Language: Mohawk Communication Ability: Effective Combination Presser Required: No Beliefs That Will Affect Care: None Current Living Situation: Alone and Other Current Living Situation Comment: [facility] Other Information That Helps Us Care for You: No Feels Safe at Home: Yes Safety Concerns: Feels Safe At This Time Assistive Devices: Glasses and Walker Review of Systems Constitutional: no fever, no chills and no fatigue Eyes: no worsening vision Ear, Nose, Mouth, Throat: no facial pain and no pain with swallowing Respiratory: no cough and no dyspnea Cardiovascular: no chest pain and no palpitations Gastrointestinal: no abdominal pain, no nausea and no vomiting Genitourinary: + dysuria, + urinary frequency, + hematuria and + abnormal vaginal bleeding; no difficulty urinating Musculoskeletal: no back pain Integumentary: no rash and no urticaria Neurologic: no gait abnormality and no unsteadiness Psychiatric: no behavioral changes and no depression Endocrine: no fatigue Physical Exam Constitutional: well developed and well nourished Neck: neck nontender Respiratory: normal respiratory effort; no respiratory distress and does not use accessory muscles Cardiovascular: Rate/Rhythm: regular rate Vessels: radial pulses present Extremities: no edema Gastrointestinal (Abdomen): Inspection/Auscultation: abdomen normal to inspection Percussion/Palpation: abdomen soft; abdomen nontender and no guarding Musculoskeletal: Head/Neck/Chest: normocephalic and head atraumatic Extremities: extremities normal to inspection Skin: no rashes and no lesions Trauma: no evidence of skin trauma Neurologic: awake; not obtunded Speech / Cognition: normal speech Motor/Sensory: no tremor Psychiatric: Orientation: alert and oriented x 3 Lymphatic: no lymphadenopathy Results & Data ([facility]) Vital Signs (Past 12 Hours) Vital Signs Temp Pulse Pulse Resp BP BP Pulse Ox 02/27/21 07:35 37.1 C 75 16 158/69 H 98 02/27/21 06:50 36.8 C 75 18 158/69 H 96 02/27/21 06:49 36.8 C 75 18 158/69 H 96 02/27/21 05:43 37.0 C 76 18 163/77 H 97 02/27/21 04:43 36.8 C 83 18 161/73 H 96 02/27/21 04:15 37.0 C 79 16 133/56 L 95 02/27/21 04:00 37.2 C 81 18 138/68 95 02/27/21 03:37 36.8 C 81 16 132/63 95 PG Care Time/CCT Total # of Minutes Spent Total Time Spent with Patient: Total time spent is greater than 50% in coordination of care (as documented) at patient's floor/unit and/or counseling patient: Coding Level of Care Code 95126 Inpt Consult Level 5 Diagnoses Hydroureter N13.4 Hematuria R31.9 Cervical mass N88.8
[2021-02-27] MEDS ORDERED: IRON SUCROSE 200 MG in 0.9 % SODIUM CHLORIDE 100 ML IV SCH (12:00)
[2021-02-27] MEDS: cefTRIAXone SODIUM 2,000 MG in DEXTROSE 5% 50 ML IV SCH (16:11)
[2021-02-27] MEDS: LACTATED RINGER'S 1,000 ML IV SCH (19:02)
--- NOTE | 2021-02-27 19:42 | Hospitalist Progress Note ---
Date of Service February 27, 2021 Assessment & Plan (1) Cervical mass: (2) Anemia: (3) Hematuria: (4) Hydroureter: (5) UTI (urinary tract infection): (6) ELADIO (acute kidney injury): (7) Hydroureteronephrosis: (8) Bladder injury: (9) Chronic kidney disease, stage III (moderate): (10) Hypertension: Plan: (1) Cervical mass: - Mass-like enlargement of the cervix with loss of fat plane between the cervix and bladder with associated material within the bladder. 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 - Gyne consulted- they feel a biopsy would be very risky to perform at this facility and would benefit from being transferred to a tertiary facility for a biopsy to be performed by mica laminating machine feeder-oncology. - Pt has been accepted to [facility], however, a bed is not yet available. Estimated 2-3 days over the phone with transfer services. - Admit provider is Dr. Campos Pichardo, Hotel Reservationist-Onc - Pt and daughter in agreement with the plan for transfer. - Continue management of ELADIO an UTI here. - Pt and family unsure of direction they would like to go if cancer is the diagnosis. They will continue to discuss as they hear treatment options. (2) Bladder injury: - Hyperdense material within the bladder and cervix may reflect tumor and hemorrhage. - Urology consulted- appreciate assistance - no urinary outflow tract obstruction at this time - suspect bladder invasion from cervical mass (3) Hematuria: As above- - will trend CBC and transfuse to keep >8 - gonzalez placed to see if bladder is true source of bleeding vs cervix. (4) Hydroureteronephrosis: - Urology consulted - does not recommend ureter stent or cystoscopy at this time, discussed nephrostomy, but this is not done at this facility. - as above - high probability of oncological process (5) Acute blood loss Anemia: Acute on chronic- likely with component of iron deficiency - Current bleeding and HGB <8 will transfuse to keep >8 - If hemodynamics change- support with PRBC - INR normal - Platelet count normal - CBC ordered at 19:00. Last transfusion in early afternoon today. (6) UTI (urinary tract infection): - Continue Rocephin- await culture - Recently treated with Diflucan as outpatient secondary to yeast in urine as well - Monitor inflammatory response and culture data (7) ELADIO (acute kidney injury): - Could be post-obstructive due to mass effect from cervical/bladder mass - PRBC for volume and anemia - IVF D/C'd as pt received over 3 L of fluid and can tolerate oral hydration (8) Chronic kidney disease, stage III (moderate): - As above (9) Hypertension: - Continue Cardizem as long as hemodynamics remain normal (10) REINA (generalized anxiety disorder): - Continue buspirone (11) Parotid mass: - Stable SCD Admission and Anticipated Discharge Date Admission Date: February 26, 2021 Supervising Physician Co-Signing Physician Notes Resident Physician Supervision Note: I independently interviewed and examined the patient and verified the bates history and physical, reviewed labs and image studies and agree with resident Dr. Escobar findings and care plan. Subjective Pt seen at bedside today. Pt is aware of the possible diagnosis of a neoplastic disorder. She wishes to take things one step at a time. She overall feels well and has no complaints and would just like to figure out what is going on as it has been a lot to process over the past day. She reports that she has been passing clots off and on for the past year or so, but recently the clots and blood have been more frequent which is what had brought them to the ER and sequentially admitted to the hospital. She denies feeling light headed or fatigued despite having an anemia with a hgb of 7.7. She had received 1 unit of PRBC last night which she tolerated well. Otherwise, pt has no other complaints at this time. Review of Systems Review of Systems: All systems reviewed & are unremarkable except as noted in HPI & below Physical Exam Constitutional: WD/WN, vitals as above Eyes: PERRL, conjunctivae normal, anicteric sclerae Neck: trachea midline, no thyromegaly normal visual inspection Respiratory: normal respiratory effort, lungs clear to auscultation Cardiovascular: RRR, no murmur, no edema Palpation: normal PMI Gastrointestinal (Abdomen): normal bowel sounds, soft, nontender, no hepatosplenomegaly There is a palpable mass in the abdomen just superior to the pubic symphosis. Skin: no rashes, warm and dry Neurologic: CN's II-XI intact bilaterally Psychiatric: A+Ox3, euthymic affect Genitourinary: Wears depends that have spots of blood. Lymphatic: no cervical or axillary lymphadenopathy Results & Data Results & Data ([facility]) Vital Signs (Past 12 Hours) Vital Signs Temp Pulse Pulse Resp BP BP Pulse Ox 02/27/21 19:05 37 C 70 16 148/70 H 96 02/27/21 18:09 37.3 C 75 16 182/71 H 95 02/27/21 17:35 36.9 C 73 18 165/78 H 95 02/27/21 17:06 37.0 C 70 18 171/69 H 97 02/27/21 16:50 37.1 C 69 20 174/71 H 97 02/27/21 16:35 37.1 C 72 18 172/73 H 97 02/27/21 16:32 37.1 C 72 18 172/73 H 97 02/27/21 15:00 37.1 C 69 18 169/74 H 95 02/27/21 14:23 37.1 C 78 16 172/74 H 96 02/27/21 13:45 36.8 C 75 18 154/68 H 96 02/27/21 13:15 37.4 C 75 18 160/71 H 96 02/27/21 12:40 36.8 C 70 18 174/82 H 97 02/27/21 12:16 37.4 C 74 20 163/76 H 02/27/21 11:47 37.2 C 70 16 153/68 H 97 02/27/21 11:40 36.8 C 70 16 151/73 H 96 02/27/21 11:28 37.4 C 76 16 168/71 H 97 02/27/21 07:35 37.1 C 75 16 158/69 H 98 (1) Anemia Anemia type: unspecified type Qualified Code(s): D64.9 - Anemia, unspecified
[2021-02-27 21:00] LABS: Hematocrit (blood only) 33.5 % (37-47); Hemoglobin 11.1 g/dL (12.0-16.0); Mean Corpuscular Hgb Conc 33.1 g/dL (32-36); Mean Corpuscular Volume 81.5 fL (80-100); Platelet Count 285 K/uL (130-400); RDW Coefficient of Variation 18.5 % (11.5-14.5); RDW Standard Deviation 54.7 fL (36.4-46.3); Red Blood Count 4.11 M/uL (4.2-5.4)
[2021-02-28 06:04] LABS: Hemoglobin 10.8 g/dL (12.0-16.0); Mean Corpuscular Hemoglobin 26.5 pg (25-34); Mean Corpuscular Hgb Conc 32.7 g/dL (32-36); Mean Corpuscular Volume 81.1 fL (80-100); Mean Platelet Volume 8.7 fL (7.4-10.4); Platelet Count 269 K/uL (130-400); RDW Coefficient of Variation 18.6 % (11.5-14.5); Red Blood Count 4.07 M/uL (4.2-5.4); White Blood Count 12.64 K/uL (4.8-10.8)
[2021-02-28 06:34] LABS: Basophils # (auto) 0.05 K/uL (0-0.2); Basophils % (auto) 0.4 %; Eosinophils # (auto) 0.13 K/uL (0-0.5); Immature Granulocytes # (auto) 0.17 K/uL (0.00-0.02); Immature Granulocytes % (auto) 1.3 %; Lymphocytes # (auto) 2.26 K/uL (1.2-3.4); Lymphocytes % (auto) 17.9 %; Monocytes # (auto) 1.61 K/uL (0.11-0.59); Monocytes % (auto) 12.7 %; Neutrophils # (auto) 8.42 K/uL (1.4-6.5); Neutrophils % (auto) 66.7 %; Polychromasia 1+
[2021-02-28 06:36] LABS: BUN Creatinine Ratio 11.6 (10-20); Calcium 8.5 mg/dl (8.5-10.1); Creatinine Clr Calc Pharmacy 17.9 ml/min; Est GFR (African American) 20.5 ml/min; Est GFR (Non-African American) 17.7 ml/min; Magnesium 2.1 mg/dl (1.8-2.4); Potassium 3.9 mmol/L (3.5-5.1)
[2021-02-28] MEDS: ESCITALOPRAM OXALATE 20 MG TAB PO SCH (09:07)
[2021-02-28] MEDS: dilTIAZem HCL 240 MG CAPCR PO SCH (09:08)
[2021-02-28] MEDS: busPIRone 5 MG TAB PO SCH ×3 (09:08→20:48)
[2021-02-28] MEDS: CHOLECALCIFEROL 1,000 UNITS 25 MCG TAB PO SCH (09:08)
--- NOTE | 2021-02-28 09:12 | Urology Progress Note ---
Date of Service February 28, 2021 Assessment & Plan (1) Hydroureteronephrosis: (2) Hematuria: (3) ELADIO (acute kidney injury): (4) Cervical mass: Plan: 85-year-old female who appears to have advanced cervical carcinoma eroding or at least indenting the bladder and obstructing the left distal ureter with hydroureteronephrosis and hydroureter, ELADIO. - Plan of care reviewed with Dr. Coppola, urologist court operations clerk - Afebrile, lab work reviewed - creatinine 2.39 (previously 2.29), WBC 12.64, Hgb 10.8 - Hemoglobin improved after receiving PRBCs yesterday - UC&S preliminary pin point growth, re-incubating - continue antibiotics per primary service, follow cultures - Austin catheter intact and draining clear pink urine - Urine leaking around catheter is likely related to bladder spasms, continue to monitor - Patient is awaiting transfer to [facility] - No acute intervention at this time - Based on the appearance of the scans, placement of a left ureteral stent is unlikely to be successful - To improve her renal function the best approach may be left percutaneous nephrostomy - Continue supportive care, antibiotics, and management per primary service - If patient becomes acutely ill/febrile, contact our service urgently as we may attempt ureteral stent placement while patient awaiting transfer to tertiary center or otherwise consider palliative management. - will sign off at this time. Please reconsult us with additional questions, concerns or changes in patient status. Admission and Anticipated Discharge Date Admission Date: February 26, 2021 Subjective Patient seen and examined at bedside this morning. No acute issues overnight. Overall feeling pretty well, some fatigue/weakness. Denies flank or suprapubic pain. She is tolerating Austin catheter, but notes urine has been leaking around catheter. Urine clear pink in tubing. Tolerating PO diet, no nausea or vomiting. No fever or chills. No dizziness. Review of Systems Constitutional: as per Subjective / HPI Gastrointestinal: as per Subjective / HPI Genitourinary: as per Subjective / HPI Physical Exam Constitutional: well developed and well nourished; no acute distress Respiratory: normal respiratory effort; no respiratory distress Gastrointestinal (Abdomen): Inspection/Auscultation: abdomen normal to inspection; abdomen not distended Musculoskeletal: Head/Neck/Chest: normocephalic and head atraumatic Genitourinary: Austin intact, patent, and draining pink urine, some urine noted to be leaking around catheter Results & Data ([facility]) Vital Signs (Past 12 Hours) Vital Signs Temp Pulse Resp BP Pulse Ox 02/28/21 07:28 36.7 C 71 20 172/66 H 95 02/27/21 23:10 37.5 C 72 16 162/69 H 93 PG Care Time/CCT Total # of Minutes Spent Total Time Spent with Patient: Total time spent is greater than 50% in coordination of care (as documented) at patient's floor/unit and/or counseling patient: Coding Level of Care Code 13152 Subseq Hosp Care Lvl 2 Diagnoses Hydroureteronephrosis N13.30 Hematuria R31.9 Cervical mass N88.8 ELADIO (acute kidney injury) N17.9
--- NOTE | 2021-02-28 12:18 | Discharge Summary ---
Date of Service February 28, 2021 Admission HPI Per Admitting Provider 85 YOF with past medical history of: Fall, arthroplasty of, chronic anemia, HTN, HFpEF, OA, DJD of right knee with replacement, REINA, chronic parotid mass. Patient comes in today with her daughter for concerns of increase in bleeding and clot passage noted in her depends. The patient reports that she has had some blood in urine for a while but only just on the toilet paper or in the bowel. In october she had one episode of large blood with clot passage in her depends, that went away on its own. Over the past week there has been increase in clot and blood in her pads and changing her undergarments 5-6 x per day. This is associated with burning and pain that is mostly felt in the urethra. She does not notice any rectal pain or vaginal pain. She had 2 large clots in her depends this morning, was changed in the EMD x1, and upon my evaluation has another large clot with blood noted in her depends. The patient has chronic anemia but her HGB is down to 7.7 today. She had a CT scan of the abdomen and pelvis done, although without contrast secondary to her elevated [employer] level. The CT scan of her abdomen and pelvis revealed- heterogeneous enlargement of the cervix which contains hyperdense material which may reflect tumor or blood as well as inflammatory process that is consistent with her elevated WBC and urinalysis. Her abdominal ultrasound revealed Complex material within the bladder which could reflect clot. Coexistent bladder mass cannot be excluded. The patient will be admitted to converge on a diagnostic and treatment plan for the above findings which likely represent a malignant process. Will transfuse PRBC to keep HGB >8, she is hemodynamically stable, follow renal function, and pain control. Will continue Rocephin for her UTI. Patient COVID test on admission is: NEGATIVE Admission Exam Per Admitting Provider PHYSICAL EXAM: General: awake, alert, no apparent distress Head: Normocephalic, atraumatic ENT: PERRL, EOMI, no pharyngeal exudate, mucous membranes moist Neuro: AAO x 3, speech clear and appropriate, strength intact bilaterally 5/5, sensation intact and equal all extremities and dermatomes, no pronator drift Chest: equal rise and fall of the chest, no accessory muscle use, no heaves or thrills, Clear to auscultation, on room air, Cardiac: Regular rate and rhythm, telemetry reviewed-NSR, skin warm dry, cap refill <3 seconds, peripheral pulses +2 no JVD, no murmur, no edema GI: NABS x 4 quadrants, soft, nontender to palpation, no rebound, guarding or tenderness : clots with blood and urine pain to palpation in the bladder and groin Extremities: Normal inspection, no peripheral edema or erythema, calfs nontender to palpation Psych: Normal mood and affect- likely some mild baseline dementia Skin: no rash or erythema Principal Diagnosis Cervical mass Discharge Exam Constitutional WD/WN, vitals as above well developed and well nourished; no acute distress Neck trachea midline, no thyromegaly normal visual inspection; neck nontender Respiratory normal respiratory effort, lungs clear to auscultation normal respiratory effort; no respiratory distress and does not use accessory muscles Cardiovascular RRR, no murmur, no edema Rate/Rhythm: regular rate Extremities: no edema Gastrointestinal (Abdomen) normal bowel sounds, soft, nontender, no hepatosplenomegaly Inspection/Auscultation: abdomen normal to inspection; abdomen not distended Percussion/Palpation: abdomen soft; abdomen nontender and no guarding Skin no rashes, warm and dry Trauma: no evidence of skin trauma Neurologic CN's II-XI intact bilaterally and awake; not obtunded Speech / Cognition: normal speech Motor/Sensory: no tremor Psychiatric A+Ox3, euthymic affect Orientation: alert and oriented x 3 Lymphatic no cervical or axillary lymphadenopathy no lymphadenopathy Discharge Data Allergies Allergy/AdvReac Type Severity Reaction Status Date / Time aloe vera Allergy Intermediate Rash Verified 02/26/21 14:30 benzethonium chloride Allergy Intermediate Rash Verified 02/26/21 14:30 [From Lanacane with Aloe] benzocaine Allergy Intermediate Rash Verified 02/26/21 14:30 [From Lanacane with Aloe] meloxicam Allergy Unknown ON JUNIPER Verified 02/26/21 14:30 MED LIST Consultations 02/26/21 17:12 ED Decision to Admit Stat 02/26/21 19:21 Consult Gynecology Routine Consult Urology Routine Ordered Studies 02/26/21 12:48 US pelvic complete Stat 02/26/21 14:16 CT abd pelvis wo con Stat Hospital Course (1) Cervical mass: (2) Anemia: (3) Hematuria: (4) Hydroureter: (5) UTI (urinary tract infection): (6) ELADIO (acute kidney injury): (7) Hydroureteronephrosis: (8) Bladder injury: (9) Chronic kidney disease, stage III (moderate): (10) Hypertension: Pt admitted with UTI, ELADIO on 02/26 and scheduled for ground transfer to [facility] on 02/28. (1) Cervical mass: Plan: - CT found mass-like enlargement of the cervix with loss of fat plane between the cervix and bladder with associated material within the bladder. 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 - Gyne consulted- felt biopsy would be very risky to perform at this facility and would benefit from being transferred to a tertiary facility for a biopsy to be performed by rn gynecology-oncology. - Pt accepted to [facility] for cervical biopsy and treatment under admit provider Dr. Campos Pichardo - Medically stable for transfer without any expected emergencies or anticipated decompensation. (2) Bladder injury: Plan: - Hyperdense material within the bladder and cervix may reflect tumor and hemorrhage. - Urology consulted- appreciate assistance - no urinary outflow tract obstruction at this time - suspect bladder invasion from cervical mass (3) Hematuria: Plan: As above- - No acute hemorrhage with stable vital signs and HGB - will trend CBC and transfuse to keep >8 - Hgb 10.8 on day of transfer (4) Hydroureteronephrosis: Plan: - Urology consulted - does not recommend ureter stent or cystoscopy at this time, discussed nephrostomy, but this is not done at this facility. - as above - high probability of oncological process (5) Anemia: Plan: Acute on chronic- likely with component of iron deficiency - Current bleeding and HGB <8 will transfuse to keep >8 - If hemodynamics change- support with PRBC - INR normal - Platelet count normal - CBC ordered at 19:00. Last transfusion in early afternoon today. (6) UTI (urinary tract infection): Plan: - Improving on Rocephin - Recently treated with Diflucan as outpatient secondary to yeast in urine as well (7) ELADIO (acute kidney injury): Plan: - BUN/Cr - 28/2.39 today 02/28 - Likely post-obstructive due to mass effect from cervical/bladder mass - pRBC for volume and anemia - IVF D/C'd as pt received over 3 L of fluid and can tolerate oral hydratio (8) Chronic kidney disease, stage III (moderate): Plan: - As above (9) Hypertension: Plan: - Continue Cardizem Total Time Total Time Spent Total Time Spent (In Minutes): <30 Discharge Plan Discharge Items Patient Disposition: Transfer Acute Care Hospital Reason For Visit: HEMATURIA, VAGINAL BLEEDING, ANEMIA Discharge Diagnosis: Cervical mass Activity: Per Instructions section Non-emergency contact: Primary Care Provider and Facilities Specialist Call non-emergency contact if: you have any medication questions, your symptoms worsen, your pain is not controlled and your pain is unusual for you Follow-up/Referrals: Dino Magaña at [facility] [Primary Care Provider] - Diet: Regular Addtl Attending Provider Instructions: You were admitted to the hospital for a urinary tract infection and blood in the urine. Imaging studies revealed the presence of a cervical mass, which may have contributed to your symptoms. It is currently uncertain whether the mass represents potential cancer. That's why it is necessary to perform a biopsy of the mass. Unfortunately this facility does not have the resources to perform the cervical biopsy especially in the background of your blood loss in the urine. Your degree of blood loss was significant enough that we had to provide blood transfusions. You are to be transferred to [facility] to receive the cervical biopsy with subsequent evaluation and treatment Pending Studies at Discharge: No Stand-Alone Forms: My [facility] Skilled Items Patient informed of condition?: Yes DNR: No Discharge Level of Care: Other Communicable Disease: No Discharge Prognosis: Stable Lines: None Urinary Catheter: Yes Medications and DC Order Prescriptions: Continued buspirone 5 mg Tablet 5 mg PO TID RF: 0 diltiazem HCl [Cardizem CD] 240 mg Capsule,Extended Release 24hr 240 mg PO QAM RF: 0 cholecalciferol (vitamin D3) [Vitamin D3] 2,000 unit Tablet 2,000 unit PO QAM RF: 0 escitalopram oxalate 20 mg tablet 20 mg PO QAM RF: 0 acetaminophen [Tylenol Extra Strength] 500 mg Tablet 500 mg PO HS RF: 0 Discharge Orders: Discharge Order (Routine); Ordered 02/28/21 Ordered By: Jayme Roberson Admission Data Admit Date/Time: 02/26/21 16:51 Attending Provider: Khari Macario Admit Provider: Akhil Yoo Primary Care Provider: Dino Magaña at [facility] Other Providers: Akhil Yoo ; Jillian Truong ; Ben Rob Other Interventions: Discharge Summary Assessment (RN) Last Done: 02/28/21 14:16 Supervising Physician Co-Signing Physician Notes I personally examined the patient and verified all bates points of history and exam, discussed case, and agree with decision making with Dr Roberson feeling ok. for transfer to [facility]. transport now available. vitals noted nad heent nc at mmm breathing unlabored no accessory muscles good effort skin no rashes no pallor or icterus cervical cancer w renal obstruction - supportive care. for transfer to [facility] this evening. otherwise as above Resident Activity Tracking Resident Involvement: Resident Care Provided Care Provided: Adult Hospital Medicine
--- NOTE | 2021-02-28 15:29 | Hospitalist Progress Note ---
Date of Service February 28, 2021 Assessment & Plan (1) Cervical mass: (2) Anemia: (3) Hematuria: (4) Hydroureter: (5) UTI (urinary tract infection): (6) ELADIO (acute kidney injury): (7) Hydroureteronephrosis: (8) Bladder injury: (9) Chronic kidney disease, stage III (moderate): (10) Hypertension: Plan: Pt admitted with UTI, ELADIO on 02/26 and scheduled for ground transfer to [facility] on 03/01. (1) Cervical mass: Plan: - CT found mass-like enlargement of the cervix with loss of fat plane between the cervix and bladder with associated material within the bladder. 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 - Gyne consulted- felt biopsy would be very risky to perform at this facility and would benefit from being transferred to a tertiary facility for a biopsy to be performed by band aid machine operator-oncology. - Pt accepted to [facility] for cervical biopsy and treatment under admit provider Dr. Campos Pichardo - Medically stable for transfer without any expected emergencies or anticipated decompensation. Transfer expected to occur tomorrow 03/01. (2) Bladder injury: Plan: - Hyperdense material within the bladder and cervix may reflect tumor and hemorrhage. - Urology consulted- appreciate assistance - no urinary outflow tract obstruction at this time - suspect bladder invasion from cervical mass (3) Hematuria: Plan: As above- - No acute hemorrhage with stable vital signs and HGB - will trend CBC and transfuse to keep >8 - Hgb 10.8 on day of transfer (4) Hydroureteronephrosis: Plan: - Urology consulted - does not recommend ureter stent or cystoscopy at this time, discussed nephrostomy, but this is not done at this facility. - as above - high probability of oncological process (5) Anemia: Plan: Acute on chronic- likely with component of iron deficiency - Current bleeding and HGB <8 will transfuse to keep >8 - If hemodynamics change- support with PRBC - INR normal - Platelet count normal - CBC ordered at 19:00. Last transfusion in early afternoon today. (6) UTI (urinary tract infection): Plan: - Improving on Rocephin - Recently treated with Diflucan as outpatient secondary to yeast in urine as well (7) ELADIO (acute kidney injury): Plan: - BUN/Cr - 28/2.39 today 02/28 - Likely post-obstructive due to mass effect from cervical/bladder mass - pRBC for volume and anemia - IVF D/C'd as pt received over 3 L of fluid and can tolerate oral hydratio (8) Chronic kidney disease, stage III (moderate): Plan: - As above (9) Hypertension: Plan: - Continue Cardizem Admission and Anticipated Discharge Date Admission Date: February 26, 2021 Supervising Physician Co-Signing Physician Notes I personally examined the patient and verified all bates points of history and exam, discussed case, and agree with decision making with Dr Roberson feeling ok. for transfer to [facility]. bed available - no transport until tomorrow vitals noted nad heent nc at mmm breathing unlabored no accessory muscles good effort skin no rashes no pallor or icterus cervical cancer w renal obstruction - supportive care. for transfer to [facility] hopefully tomorrow (transportation issues today) - continue current care otherwise Subjective Pt doing well today without any acute complaints. Still experiencing some dysuria but much improved from admission. Review of Systems Review of Systems: All systems reviewed & are unremarkable except as noted in Subjective Physical Exam Constitutional: WD/WN, vitals as above well developed and well nourished; no acute distress Neck: trachea midline, no thyromegaly normal visual inspection; neck nontender Respiratory: normal respiratory effort, lungs clear to auscultation normal respiratory effort; no respiratory distress and does not use accessory muscles Cardiovascular: RRR, no murmur, no edema Rate/Rhythm: regular rate Extremities: no edema Gastrointestinal (Abdomen): normal bowel sounds, soft, nontender, no hepatosplenomegaly Inspection/Auscultation: abdomen normal to inspection; abdomen not distended Percussion/Palpation: abdomen soft; abdomen nontender and no guarding Musculoskeletal: Head/Neck/Chest: normocephalic and head atraumatic Extremities: extremities normal to inspection Skin: no rashes, warm and dry no rashes and no lesions Trauma: no evidence of skin trauma Neurologic: CN's II-XI intact bilaterally and awake; not obtunded Speech / Cognition: normal speech Motor/Sensory: no tremor Psychiatric: A+Ox3, euthymic affect Orientation: alert and oriented x 3 Genitourinary: Speculum/Bimanual Exam: normal bimanual exam (Mass is fixed in the pelvis), normal appearance of the vagina and normal appearance of the cervix (Large mass protruding to the left side of the vaginal wall firm) Lymphatic: no cervical or axillary lymphadenopathy no lymphadenopathy Results & Data Results & Data ([facility]) Vital Signs (Past 12 Hours) Vital Signs Temp Pulse Resp BP Pulse Ox 02/28/21 14:46 36.7 C 71 18 148/75 H 96 02/28/21 14:16 36.7 C 71 20 172/66 H 95 02/28/21 07:28 36.7 C 71 20 172/66 H 95 Resident Activity Tracking Resident Involvement: Resident Care Provided Care Provided: Adult Hospital Medicine (1) Anemia Anemia type: unspecified type Qualified Code(s): D64.9 - Anemia, unspecified
[2021-02-28] MEDS: cefTRIAXone SODIUM 2,000 MG in DEXTROSE 5% 50 ML IV SCH (15:42)
--- NOTE | 2021-02-28 16:14 | Billing Data ---
Date of Service February 28, 2021 Coding Level of Care Code 98654 Subseq Hosp Care Lvl 2
[2021-03-01 07:32] LABS: Basophils # (auto) 0.04 K/uL (0-0.2); Basophils % (auto) 0.4 %; Eosinophils # (auto) 0.19 K/uL (0-0.5); Eosinophils % (auto) 1.8 %; Hematocrit (blood only) 35.1 % (37-47); Hemoglobin 11.3 g/dL (12.0-16.0); Immature Granulocytes # (auto) 0.12 K/uL (0.00-0.02); Immature Granulocytes % (auto) 1.1 %; Lymphocytes # (auto) 1.54 K/uL (1.2-3.4); Lymphocytes % (auto) 14.5 %; Mean Corpuscular Hemoglobin 26.5 pg (25-34); Mean Corpuscular Hgb Conc 32.2 g/dL (32-36); Mean Corpuscular Volume 82.4 fL (80-100); Monocytes # (auto) 1.28 K/uL (0.11-0.59); Monocytes % (auto) 12.1 %; Neutrophils # (auto) 7.44 K/uL (1.4-6.5); Neutrophils % (auto) 70.1 %; Platelet Count 290 K/uL (130-400); RDW Standard Deviation 57.5 fL (36.4-46.3); Red Blood Count 4.26 M/uL (4.2-5.4); White Blood Count 10.61 K/uL (4.8-10.8)
[2021-03-01 08:09] LABS: BUN Creatinine Ratio 11.6 (10-20); Creatinine Clr Calc Pharmacy 18.5 ml/min; Est GFR (African American) 21.3 ml/min; Est GFR (Non-African American) 18.4 ml/min; Magnesium 2.2 mg/dl (1.8-2.4); Potassium 3.7 mmol/L (3.5-5.1)
[2021-03-01] MEDS: busPIRone 5 MG TAB PO SCH ×3 (08:47→20:20)
[2021-03-01] MEDS: ESCITALOPRAM OXALATE 20 MG TAB PO SCH (08:48)
[2021-03-01] MEDS: CHOLECALCIFEROL 1,000 UNITS 25 MCG TAB PO SCH (08:48)
[2021-03-01] MEDS: dilTIAZem HCL 240 MG CAPCR PO SCH (08:48)
[2021-03-01] MEDS ORDERED: DICLOFENAC SOD 1% GEL 100 GM TUBE EXT PRN (09:05)
--- NOTE | 2021-03-01 14:54 | Billing Data ---
Date of Service March 01, 2021 Coding Level of Care Code D/C DAY MANAGEMENT <30 MINS
[2021-03-01] MEDS: cefTRIAXone SODIUM 2,000 MG in DEXTROSE 5% 50 ML IV SCH (17:30)
[2021-03-02] MEDS: busPIRone 5 MG TAB PO SCH (07:50)
[2021-03-02] MEDS: ESCITALOPRAM OXALATE 20 MG TAB PO SCH (07:50)
[2021-03-02] MEDS: dilTIAZem HCL 240 MG CAPCR PO SCH (07:50)
[2021-03-02] MEDS: CHOLECALCIFEROL 1,000 UNITS 25 MCG TAB PO SCH (07:50)
--- NOTE | 2021-03-02 09:07 | Communication Note ---
Date of Service: March 02, 2021 due to transportation issues, pt did not physically leave [facility] until this AM. pt not able to be seen today prior to transfer
--- NOTE | 2021-03-11 14:41 | Coding Query ---
CODING QUERY To promote full compliance with coding requirements relating to patient care, provider participation is requested in all cases of auditing coder uncertainty. Please assist us with the question(s) below: Coding Question(s): There is anemia documented in the record with Progress Note on 02/27 documenting, "Acute blood loss Anemia: Acute on chronic- likely with component of iron deficiency". Please specify below, in your clinical opinion, to determine the most likely source of the Acute Blood Loss Anemia with component of iron deficiency. ( ) most likely due to possible Cervical Cancer ( x ) most likely due to possible Bladder invasion of the cancer (mets to bladder) ( ) most likely due to Other: Please Specify ( ) Unknown likely source Physician's Response(s): Thank you Marion Huff Principal Diagnosis: "that condition established after study, to be chiefly responsible for occasioning the admission of the patient to the hospital for care." Co-Existing Principal Diagnosis: "when two or more diagnoses equally meet the criteria for principal diagnosis as determined by the circumstances of admission, diagnostic work up, and/or therapy provided, and the Alphabetic Index, Tabular List, or another coding guideline does not provide sequencing direction, any one of the diagnoses may be sequenced first." "When the physician has documented what appears to be a current diagnosis in the body of the record, but has not included the diagnosis in the final diagnostic statement, the physician should be asked whether the diagnosis should be added." (Source Coding Clinic 2 QTR90. p3-4) KIANA
== END 2021-03-02 08:40 | disposition short-term general hospital (02) | DRG 687 ==
LOC: ED 12:27 → SUATTDRO 16:51 → 3N 16:51